=== PATIENT | male | born 1995 | race African-American/Black ===

== ENCOUNTER 2021-09-16 14:28 | Emergency (ER) | payer OTHER ==
[~2021-09-16] VITALS: Ht 190.5 cm; Wt 68.0 kg
[2021-09-16] MEDS ORDERED: NORCO7.5 PO (15:15)
[2021-09-16 15:41] VITALS: BP 122/85
== END 2021-09-16 15:41 | disposition home or self-care (01) ==
LOC: ER 14:28
DX: S92.335A Nondisplaced fracture of third metatarsal bone, left foot, initial encounter for closed fracture (principal); S92.345A Nondisplaced fracture of fourth metatarsal bone, left foot, initial encounter for closed fracture; F17.200 Nicotine dependence, unspecified, uncomplicated; Z91.040 Latex allergy status; X58.XXXA Exposure to other specified factors, initial encounter; Y93.89 Activity, other specified; Y92.89 Other specified places as the place of occurrence of the external cause; Y99.8 Other external cause status